=== PATIENT | female | born 1980 | race Caucasian/White ===

== ENCOUNTER 2018-02-23 18:13 | Emergency (ER) | payer MEDICAID | END 2018-02-23 20:44 | disposition home or self-care (01) | LOC: FTE 18:13 | DX: H02.846 Edema of left eye, unspecified eyelid (principal); R51 Headache | CPT/HCPCS: 70450; 70480; 81025; 99284-25 ==

== ENCOUNTER 2018-03-03 18:47 | Emergency (ER) | payer MEDICAID | END 2018-03-03 20:29 | disposition home or self-care (01) | LOC: FTE 20:29 | DX: J06.9 Acute upper respiratory infection, unspecified (principal) | CPT/HCPCS: 99283 ==